=== PATIENT | male | born 1955 | race Caucasian/White ===

== ENCOUNTER → 2019-06-16 08:46 | Outpatient (CLI) | payer OTHER, SELFPAY ==
--- NOTE | 2019-06-16 08:52 | CDU_ITS ---
Reason For Study: Carotid stenosis Rt. Velocities/BP Lt. Velocities/BP Prox CCA 102.3/18.8 cm/sec. Prox CCA 110.9/22.5 cm/sec. Mid CCA 113.8/24.3 cm/sec. Mid CCA 78.3/16.8 cm/sec. Dist CCA 85.1/20 cm/sec. Dist CCA 69.5/15.7 cm/sec. Prox ICA 56.4/14.6 cm/sec. Prox ICA 54.2/17.9 cm/sec. Mid ICA 59.7/20.1 cm/sec. Mid ICA 62.9/23.4 cm/sec. Dist ICA 87.2/30 cm/sec. Dist ICA 82.8/30 cm/sec. Rt. ICA/CCA = 0.9. Lt. ICA/CCA = 1.1. Prox ECA 160.9/18.2 cm/sec. Prox ECA 141.2/13.3 cm/sec. Rt. Vert. 42.9/7.3 cm/sec. Lt. Vert. 30.7/18.2 cm/sec. Right Extracranial There is homogeneous, smooth atherosclerotic plaque noted in the right common carotid artery. There is heterogeneous, irregular atherosclerotic plaque noted in the right internal carotid artery. There is intimal thickening but no significant atherosclerotic plaque noted in the right external carotid artery. Antegrade flow is noted in the right vertebral artery. Left Extracranial There is homogeneous, smooth atherosclerotic plaque noted in the left common carotid artery. There is heterogeneous, irregular atherosclerotic plaque noted in the left internal carotid artery. There is homogeneous, smooth atherosclerotic plaque noted in the left external carotid artery. Antegrade flow is noted in the left vertebral artery. Procedure Carotid Duplex [id number]. Exam performed in department. Interpretation Summary Mild (<50%) stenosis right extracranial internal carotid. Mild (<50%) stenosis left extracranial internal carotid. Flow within the vertebral arteries is antegrade bilaterally. Ordering Physician: Veronika Mancera Referring Physician: Veronika Mancera Performed By: Elsie Shrestha RVT
== END ==
PROVIDERS: PCP Nurse Practitioner; Referring Provider Nurse Practitioner; Visit Provider Nurse Practitioner
DX: I65.29 Occlusion and stenosis of unspecified carotid artery (principal)
CPT/HCPCS: 93880

== ENCOUNTER → 2021-01-30 07:27 | Outpatient (CLI) | payer OTHER, SELFPAY ==
--- NOTE | 2021-01-30 07:31 | CDU_ITS ---
Reason For Study: CVA Rt. Velocities/BP Lt. Velocities/BP Prox CCA 96.9/20.0 cm/sec. Prox CCA 99.2/23.4 cm/sec. Mid CCA 96.9/17.3 cm/sec. Mid CCA 78.3/20.1 cm/sec. Dist CCA 79.9/18.6 cm/sec. Dist CCA 64.0/16.8 cm/sec. Prox ICA 41.9/13.5 cm/sec. Prox ICA 48.7/15.7 cm/sec. Mid ICA 67.4/22.0 cm/sec. Mid ICA 61.9/20.1 cm/sec. Dist ICA 56.7/20.3 cm/sec. Dist ICA 79.5/31.1 cm/sec. Rt. ICA/CCA = .7. Lt. ICA/CCA = 1.0. Prox ECA 115.2/14.7 cm/sec. Prox ECA 120.7/18.8 cm/sec. Rt. Vert. 45.4/5.8 cm/sec. Lt. Vert. 48.7/12.4 cm/sec. Right Extracranial There is homogeneous, smooth atherosclerotic plaque noted in the right common carotid artery. There is heterogeneous, smooth atherosclerotic plaque noted in the right internal carotid artery. There is heterogeneous, irregular atherosclerotic plaque noted in the right external carotid artery. Antegrade flow is noted in the right vertebral artery. Left Extracranial There is heterogeneous, irregular atherosclerotic plaque noted in the left common carotid artery. There is heterogeneous, irregular atherosclerotic plaque noted in the left internal carotid artery. There is heterogeneous, irregular atherosclerotic plaque noted in the left external carotid artery. Antegrade flow is noted in the left vertebral artery. Procedure Carotid Duplex [id number]. This is a Carotid Duplex examination using B-mode, color flow and specral Doppler. The exam was diagnostic. Exam performed in department. VL/Carotid Duplex Ultrasound Interpretation Summary Mild (<50%) stenosis right extracranial internal carotid. Mild (<50%) stenosis left extracranial internal carotid. Flow within the vertebral arteries is antegrade bilaterally. Ordering Physician: Veronika Mancera Performed By: Javid Cox RVT
== END ==
PROVIDERS: PCP Nurse Practitioner; Referring Provider Nurse Practitioner; Visit Provider Nurse Practitioner
DX: Z86.73 Personal history of transient ischemic attack (TIA), and cerebral infarction without residual deficits (principal)
CPT/HCPCS: 93880

== ENCOUNTER 2021-07-15 09:48 | Outpatient (CLI) | payer OTHER, SELFPAY ==
--- NOTE | 2021-07-15 09:51 | US_ITS ---
STUDY: ABDOMINAL ULTRASOUND - RIGHT UPPER QUADRANT REASON FOR VISIT: Male, 65 years old AB PAIN TECHNIQUE: Ultrasound evaluation of the right upper quadrant was performed with real-time and static beaulieu-scale imaging. TECHNICAL QUALITY: Adequate. COMPARISON: None. FINDINGS: Liver: The liver measures 17.5 cm. There is increased echogenicity consistent with fatty infiltration. The bile ducts are within normal limits. There is hepatic color flow. The direction of portal flow is hepatopetal. There is no demonstrated mass lesion. Gallbladder: Normal distended gallbladder. The gallbladder wall measures 2.0 mm. There is a negative sonographic Marmolejo''s sign. There is no pericholecystic fluid. There are no gallstones. Findings suggestive of a 3 mm x 3 mm x 3 mm polyp adherent to the gallbladder wall. Common Bile Duct (C.B.D.): The common bile duct measures 4 mm. Pancreas: Normal size of the head, body and tail of the pancreas. There is normal echogenicity of the pancreas. There is no demonstrated pancreatic mass or cyst. Right Kidney: Normal size of the right kidney. The right kidney measures 12.9 cm x 6.3 cm x 7.2 cm. Normal renal cortex. The right cortex measures 1.6 cm. There is no demonstrated renal mass or cyst. There is no right hydronephrosis. US/Gallbladder IMPRESSION: Fatty infiltration of the liver. 3 mm x 3 mm x 3 mm gallbladder polyp. Electronically Signed: Romaine Chua MD at 10:38 EDT ,
== END 2021-07-15 23:59 | disposition home or self-care (01) ==
LOC: US 09:50
PROVIDERS: PCP Nurse Practitioner; Referring Provider Nurse Practitioner; Visit Provider Nurse Practitioner
DX: R10.9 Unspecified abdominal pain (principal)
CPT/HCPCS: 76705

== ENCOUNTER → 2021-09-02 | Outpatient (CLI) | payer OTHER, SELFPAY ==
--- NOTE | 2021-09-02 08:49 | RAD_ITS ---
STUDY: X-RAY - ESOPHAGUS (BARIUM SWALLOW) WITH FLUOROSCOPY REASON FOR EXAM: Male, 65 years old. DYSPHAGIA -- 12 MM TABLET TECHNIQUE: 16 view(s) of the esophagus were obtained following swallowing of barium. FLUOROSCOPY TIME (if supplied): (24 seconds) minutes/seconds COMPARISON: None. FINDINGS: There is no demonstrated esophageal foreign body. There is no demonstrated stricture or mucosal abnormality. Normal gastroesophageal junction, without a demonstrated hiatal hernia. The patient ingested a 12 mm tablet of barium without any difficulty. There is atherosclerotic tortuosity of the aortic arch and descending thoracic aorta. Normal visualized pulmonary parenchyma. Normal visualized osseous structures of the thorax. RAD/Esophagus Single Contrast IMPRESSION: Normal plain film x-ray examination (barium swallow) of the esophagus. Electronically Signed: Romaine Chua MD at 13:58 EDT ,
== END | disposition home or self-care (01) ==
LOC: RAD 08:38
PROVIDERS: PCP Nurse Practitioner; Referring Provider Internal Medicine Gastroenterology; Visit Provider Internal Medicine Gastroenterology
DX: R13.10 Dysphagia, unspecified (principal)
CPT/HCPCS: 74220

== ENCOUNTER → 2022-04-28 | Outpatient (CLI) | payer MEDICARE, BC, SELFPAY ==
--- NOTE | 2022-04-28 08:29 | CDU_ITS ---
Reason For Study: HX of CVA Rt. Velocities/BP Lt. Velocities/BP Prox CCA 76.8/17.3 cm/sec. Prox CCA 91.6/23.4 cm/sec. Mid CCA 84.4/22.0 cm/sec. Mid CCA 94.9/22.3 cm/sec. Dist CCA 77.8/22.0 cm/sec. Dist CCA 76.2/25.6 cm/sec. Prox ICA 48.5/12.6 cm/sec. Prox ICA 48.7/13.5 cm/sec. Mid ICA 71.1/23.9 cm/sec. Mid ICA 50.9/19.5 cm/sec. Dist ICA 64.6/26.9 cm/sec. Dist ICA 61.8/25.9 cm/sec. Rt. ICA/CCA = 0.8. Lt. ICA/CCA = 0.7. Prox ECA 143.3/18.2 cm/sec. Prox ECA 104.5/18.8 cm/sec. Rt. Vert. 26.6/2.4 cm/sec. Lt. Vert. 41.0/13.8 cm/sec. Right Extracranial There is heterogeneous, irregular atherosclerotic plaque noted in the right common carotid artery. There is heterogeneous, irregular atherosclerotic plaque noted in the right internal carotid artery. There is no significant atherosclerotic plaque noted in the right external carotid artery. Antegrade flow is noted in the right vertebral artery. Left Extracranial There is heterogeneous, irregular atherosclerotic plaque noted in the left common carotid artery. There is heterogeneous, irregular atherosclerotic plaque noted in the left internal carotid artery. There is heterogeneous, irregular atherosclerotic plaque noted in the left external carotid artery. Antegrade flow is noted in the left vertebral artery. High resistant waveform noted. Procedure Carotid Duplex [id number]. This is a Carotid Duplex examination using B-mode, color flow and specral Doppler. The exam was diagnostic. Exam performed in department. VL/Carotid Duplex Ultrasound Interpretation Summary Mild (<50%) stenosis right extracranial internal carotid. Mild (<50%) stenosis left extracranial internal carotid. Patent and antegrade vertebrals bilaterally. Ordering Physician: Yo Martinez Referring Physician: Marilee Johnston Performed By: Alexy Brady RVT
== END | disposition home or self-care (01) ==
LOC: CVS 08:28
PROVIDERS: PCP Nurse Practitioner Family; Referring Provider Psychiatry & Neurology Neurology; Visit Provider Psychiatry & Neurology Neurology
DX: I65.23 Occlusion and stenosis of bilateral carotid arteries (principal); E78.5 Hyperlipidemia, unspecified; Z86.73 Personal history of transient ischemic attack (TIA), and cerebral infarction without residual deficits
CPT/HCPCS: 93880

== ENCOUNTER → 2022-05-20 | Outpatient (CLI) | payer MEDICARE, BC, SELFPAY ==
--- NOTE | 2022-05-20 13:27 | MRI_ITS ---
EXAM: MR HEAD WITHOUT AND WITH INTRAVENOUS CONTRAST CLINICAL INDICATION: Mild cognitive impairment; Hx of pontine stroke TECHNIQUE: Multiplanar and multisequence MR images of the brain were obtained without and with intravenous contrast. This report was created using [employer] report generation technology. CONTRAST: IV 23CC [facility] COMPARISON: MRI brain without contrast 06/09/2011. CTA head with and without contrast the 2018. FINDINGS: BRAIN AND EXTRA-AXIAL SPACES: Linear T2 FLAIR hyperintensity in the right central pontine tegmentum is presumably chronic white matter ischemic changes. No other focal signal abnormalities throughout the brain parenchyma. Following IV contrast administration, there are no abnormal enhancing lesions intra-axially and extra-axially. No intra- or extra-axial hemorrhage. No intracranial mass or mass effect. Posterior fossa structures are unremarkable. Ventricles are appropriate for age. No hydrocephalus. Basal cisterns are patent. No diffusion restriction to suspect acute or subacute ischemic infarct. SELLA: Unremarkable. Normal sella turcica, pituitary gland, infundibular stalk, optic chiasm and hypothalamus. AUDITORY SYSTEM: Unremarkable. The internal auditory canals are patent. BONES/JOINTS: Unremarkable. No discrete lytic or blastic abnormalities. SINUSES: Decreased mucosal thickening of the right maxillary sinus. Normal remaining paranasal sinuses.. MASTOID AIR CELLS: Mild mucosal edema of the right temporal mastoid bone. ORBITS: Unremarkable as visualized. Both globes, extraocular muscles, optic nerves and retrobulbar fat appear unremarkable. VASCULATURE: Unremarkable as visualized. Normal flow voids in the major intracranial circulation. MRI/Brain W/WO Contrast IMPRESSION: 1. No MRI evidence of acute or subacute ischemic infarct or acute intracranial abnormality. 2. 2 linear T2 hyperintensity in the right central pontine tegmentum are presumably chronic white matter ischemic change. These were not present previously. 3. No abnormal enhancing lesions intra-axially and extra-axially. 4. Minimal mucosal edema of the right temporal mastoid bones is a new finding. 5. Mild decreased mucosal thickening of the right maxillary sinus. Electronically Signed: Hardik Monzon MD at 14:48 EST ,
[2022-05-20 13:50] LABS: CREATININE FINGERSTICK < 0.9 mg/dL (0.70-1.30); EGFR FINGERSTICK > 60.0000 mL/min (>60)
== END | disposition home or self-care (01) ==
LOC: MRI 13:06
PROVIDERS: PCP Nurse Practitioner Family; Referring Provider Psychiatry & Neurology Neurology; Visit Provider Psychiatry & Neurology Neurology
DX: Z01.812 Encounter for preprocedural laboratory examination (principal); G31.84 Mild cognitive impairment of uncertain or unknown etiology
CPT/HCPCS: 70553; A9575